=== PATIENT | female | born 1990 | race Caucasian/White ===

== ENCOUNTER 2017-11-14 16:40 | Inpatient (IN) | payer OTHER, SELFPAY ==
[2017-11-14 06:46] VITALS: BMI 29.6
[2017-11-14] MEDS: Lactated Ringers 1,000 ML 50 ML IV ×2 (17:15→20:37)
[2017-11-14 17:56] LABS: Hematocrit 32.6 % (37-47); Hemoglobin 11.2 g/dl (12.0-15.0); Mean Corp Hgb Conc 34.4 g/gl (32-36); Mean Corpuscular Hgb 29.2 pg (27.0-32.0); Mean Corpuscular Volume 84.9 fL (81-99); Mean Platelet Vol. 9.8 fl (6.2-12.0); Platelet Count 120 K/mm3 (150-450); RBC Distribution Width CV 13.7 % (11.6-14.6); RBC Distribution Width SD 41.5 fl (35.1-43.9); Red Blood Count 3.84 M/mm3 (4.2-5.4); White Blood Count 15.9 K/mm3 (4.4-11.0)
[2017-11-14 17:57] LABS: Scan Indicated on CBC? Y/N NO
--- NOTE | 2017-11-14 19:59 | PCM.PN.BLA ---
Progress Note LABOR PROGRESS NOTE Comfortable w/ epidural. AVSS EFM category I tracing UCs q 3-7 mins AROM: light to mod mec CX: 5-6 / 75 / -2 A/P: 39 6/7 wk . Labor. Continue labor. Pitocin prn and order written. Anticipate
[2017-11-14] MEDS: Oxytocin 30 units/NS 500 ml 30 UNITS/500 ML IV.SOLN IV (20:40)
[2017-11-14] MEDS: fentaNYL-bupivacaine (epidural) 100 ML BAG EPIDURAL ×2 (21:47→22:57)
--- NOTE | 2017-11-14 22:46 | PCM.PN.BLA ---
Progress Note LABOR PROGRESS NOTE Comfortable w/ epidural Sitting up semi ponce's position in bed AVSS Pitocin augmentation EFM 130-140s avg variability accels. Category I tracing UCs q 3 mins CX: anterior lip -1 to 0 station A/P: 39 6/7 wk EGA Labor AROM and pitocin augmentation. Anticipate Begin pushing soon.
[2017-11-14] MEDS: Mag Hydrox/Al Hydrox/Simeth 30 ML UDC PO (23:49)
[2017-11-15] MEDS: Lactated Ringers 1,000 ML 50 ML IV (01:49)
[2017-11-15] MEDS: Oxytocin 30 units/NS 500 ml 30 UNITS/500 ML IV.SOLN 334 UNITS IV (03:07)
--- NOTE | 2017-11-15 03:21 | PCM.OB.VAG ---
Vaginal Delivery Maternal Presentation: Active Labor 39 6/7 wk EGA . Labor Amniotic Membrane Rupture Type: Artificial Amniotic Fluid Description: Lightly stained meconium, Moderate meconium Final MANJIT: 11/15/17 Final MANJIT Source: US <20 weeks Gestational age: 40 wks doctor who attended delivery (if requested by OB): Compa Partida - meconium stained fluid Date of Procedure: 11/15/17 Pre-Operative Diagnosis: 40 wk EGA Post-Operative Diagnosis: same Surgery/ Procedure Performed: Spontaneous Vaginal Delivery Anesthesiologist: Zhanna Bedolla Type of Anesthesia: Epidural Description of Procedure: of a ortiz viable female over intact perineum to lacerations. Head delivered LUISA. No nuchal cord. Shoulders delivered easily. Initial respiratory effort noted. OP and nares bulb suctioned on perineum. to maternal abdomen and cord clamped x two and cut. Dr. Partida in room. Baby to Dr. Partida and RT due to grunting. Additional O2 and bag mask given, mec suctioned. (See resuscitation record) Apgars pending, TBD Routine cord gases collected. PP exam; 2nd degree vaginal laceration at posterior introitus, repaired under epidural to hemostatic and intact with 3-0 vicryl Small first deg laceration at L vaginal side wall. Hemostatic and no repair required. No other lacerations. EBL 300 cc Placenta , mec stained, delivered by spont expulsion, expression. 3v cord, normal appearing and intact with trailing membranes Ray Martell counts correct Presentation: Vertex, LUISA Placental Delivery Description: Spontaneous, Expressed Placenta Disposition: Sent to Pathology - tachycardia, low gr maternal temp just prior to delivery. Meconium stained fluid and end stage meconium Cord Vessel Description: 3 Vessels Cord Gases drawn per routine: ABG, VBG Cord Entanglement: None Drain: Richard to straight drain Estimated Blood Loss: 300 Infant A gender: Female Episiotomy Description: None Laceration: Midline, 2nd degree - first degree vaginal laceration also noted , L vaginal side wall at introitus (hemostatic) Medications given after delivery: IV Pitocin Complications: None - Baby required bag mask, pulse ox on and O2. meconium suctioning performed by Dr. Partida
--- NOTE | 2017-11-15 03:30 | PCM.DCVAG ---
Discharge Diet: No Restrictions Discharge Activity: May Shower, May Take a Tub Bath May resume sexual activity in: 4-6 weeks Additional Activity Instructions:: Nothing in the vagina for 4-6 weeks. You may return to work/school in 6 weeks. Additional Instructions: If you experience any of the following, contact your healthcare provider. Bleeding that soaks a pad every hour for 2 hours Fever 100.4 or higher Unrelieved abdominal pain Problems urinating (including inability to urinate or burning while urinating). Visual changes Severe headache Flu-like symptoms Pain or redness in one of both of your breasts Pain, warmth, tenderness or swelling in your legs, especially the calf area Frequent nausea and vomiting Symptoms of depression or anxiety If you experience any of the following, call 911 or go to the nearest Emergency Room. Chest pain Problems breathing Seizure activity Partial or complete paralysis of a body part, slurred speech, weakness or drooping of the face, or a sudden inability to walk or hold your balance Allergies/Adverse Reactions: Allergies No Known Allergies Allergy (Verified 11/14/17 17:33) Medications to take at Discharge Vitamins 1 tab PO DAILY 11/14/17 Orders to be completed after discharge: Electric breast pump Location: None Selected Please Follow Up With: Darien Peterson MD - [phone] When: Call to make an appointment with your doctor in 6 weeks. Primary Care Physician: Shayna Rob MD [Primary Care Provider] - Proposed Discharge Date: 11/17/17
--- NOTE | 2017-11-15 03:31 | DCINST_ITS ---
Discharge Diet: No Restrictions Discharge Activity: May Shower, May Take a Tub Bath May resume sexual activity in: 4-6 weeks Additional Activity Instructions:: Nothing in the vagina for 4-6 weeks. You may return to work/school in 6 weeks. Additional Instructions: If you experience any of the following, contact your healthcare provider. * Bleeding that soaks a pad every hour for 2 hours * Fever 100.4 or higher * Unrelieved abdominal pain * Problems urinating (including inability to urinate or burning while urinating) . * Visual changes * Severe headache * Flu-like symptoms * Pain or redness in one of both of your breasts * Pain, warmth, tenderness or swelling in your legs, especially the calf area * Frequent nausea and vomiting * Symptoms of depression or anxiety If you experience any of the following, call 911 or go to the nearest Emergency Room. * Chest pain * Problems breathing * Seizure activity * Partial or complete paralysis of a body part, slurred speech, weakness or drooping of the face, or a sudden inability to walk or hold your balance Allergies/Adverse Reactions: Allergies No Known Allergies Allergy (Verified 11/14/17 17:33) Medications to take at Discharge Vitamins 1 tab PO DAILY 11/14/17 Orders to be completed after discharge: Electric breast pump Location: None Selected Please Follow Up With: Darien Peterson MD - [phone] When: Call to make an appointment with your doctor in 6 weeks. Primary Care Physician: Shayna Rob MD [Primary Care Provider] - Proposed Discharge Date: 11/17/17
--- NOTE | 2017-11-15 03:32 | PLAC_PTH ---
PATIENT: CHET VELASCO LOC: [facility] U#:[id number] AGE/SX: 27/F ROOM: WP019 RE11/14/[address]: Dr. Padmini Guthrie MD : 1990 BED: 1 DIS: 11/17/2017 SPEC #: [id number] RECD: 11/15/17 06:44 STATUS: LORNA GOLDSMITH #: [id number] PA: 11/15/17 03:[address]: Padmini Guthrie DEPT: SURGICAL PATHOLOGY RECD BY: Yamilka Dickerson ENTERED: 11/15/17 09:26 SP TYPE: PLACENTA OTHR DR: Dr. Shayna Rob MD Tissues: Placenta, NOS Procedures: Surgery Specimen Level V HEADER OPERATION: Vaginal delivery PRE-OP DIAGNOSIS: Meconium, tachycardia and maternal temp right TISSUE SUBMITTED: Placenta MICROSCOPIC DIAGNOSIS Restrepo placenta (483 gm): Umbilical cord ? trivascular with no inflammation. Placental membranes ? mild acute deciduitis. Pigmented macrophages consistent with meconium staining. Placental disc ? Ellen-Rakesh change and mild chronic deciduitis. AM:shelly 11/17/17 MICROSCOPIC DESCRIPTION Slides are reviewed. GROSS DESCRIPTION SPECIMEN: PLACENTA / CLINICAL INFORMATION: A. Weight: 3.126 kg B. Gestational Age: 39 weeks C. Sex: Female PLACENTAL WEIGHT (POST FIXATION): 483 gm PLACENTAL DIMENSIONS: 17 x 18 x 3 cm PLACENTAL SHAPE: Usual ovoid PLACENTAL WEIGHT FOR GESTATIONAL AGE: Within 10-99th percentile MEMBRANES - Present A. Insertion: Marginal B. Site of rupture from edge: 4 cm from edge of placental disc C. Color of membrane: Hernández-greenish and mucoidy consistent with meconium staining. D. Abnormalities: None A round piece of placenta is noted in the membranes measuring 2 x 2 x 0.5 cm. Sections of this placental piece reveal unremarkable cut surfaces. A small succenturiate lobe is noted in the membranes. UMBILICAL CORD - Present A. Color: Hernández-doran B. Insertion: Central C. Length: 30 cm D. Diameter: 1.1 cm E. Number of vessels: Three F. Abnormalities: None PLACENTAL DISC - Present A. Color of surface: Hernández-doran B. surface abnormalities: None C. Maternal cotyledons: Intact with minimal tears D. Attached retro placental clot: No clot E. Cut surface: Dark red and spongy F. Lesions: None G. Separate clot: Absent SECTIONS SUBMITTED: 1. Membrane roll 2. Cord, maternal end 3. Cord, end 4. Placental disc, and maternal surfaces 5. Placental disc, and maternal surfaces 6. Placental disc, and maternal surfaces MARCELO:shelly 11/16/17 TC:2 CPT: 96822
[2017-11-15] MEDS: Oxytocin 30 units/NS 500 ml 30 UNITS/500 ML IV.SOLN 167 UNITS IV (03:37)
[2017-11-15] MEDS: Acetaminophen 325 MG Tablet PO (04:03)
[2017-11-15 06:52] LABS: Pathology Specimen OB SEE PATHOLOGY REPORT
[2017-11-15 07:14] VITALS: BP 101/58; PULSE 100; RESP 18; TEMP 36.1; O2SAT 96
[2017-11-15 13:15] VITALS: BP 116/63; PULSE 102; RESP 18; TEMP 36.2; O2SAT 95
[2017-11-15] MEDS: Prenatal Vits Tablet 1 TABLET PO (13:38)
[2017-11-15 16:07] VITALS: BP 110/70; PULSE 100; RESP 18; TEMP 36.5; O2SAT 98
[2017-11-15] MEDS: Ibuprofen 600 MG Tablet PO (19:32)
[2017-11-15 20:00] VITALS: BP 102/56; PULSE 103; RESP 17; TEMP 36.8
[2017-11-16] VITALS: BP 91/52; PULSE 80; RESP 16
[2017-11-16] MEDS: Ibuprofen 600 MG Tablet PO ×3 (01:02→18:40)
--- NOTE | 2017-11-16 07:57 | PCM.PN.OB ---
Subjective: PPD#1 Doing well. Pain control adequate. No concerns. Baby being watched for bilirubin levels, and Leslee is fine with staying until tomorrow. Nursing . - Physical Exam General: Alert, Oriented x3, Cooperative, No apparent distress HEENT: Atraumatic, EOMI Neck: Supple Abdomen: Soft - Fundus firm NT at approx 2 cm inferior to umbilicus Neurological: Cranial nerves II-XII grossly intact Psych/Mental Status: Normal Affect Vital Signs Temp Pulse Resp BP Pulse Ox 98.2 F 80 16 91/52 L 98 11/15/17 20:00 11/16/17 00:00 11/16/17 00:00 11/16/17 00:00 11/15/17 16:07 Oxygen Delivery Method Room Air Weight: 80.739 kg Body Mass Index (BMI) 29.6 Intake and Output for Last 24 Hours 11/14/17 11/15/17 11/16/17 23:59 23:59 23:59 Output Total 400 / 400 Balance -400 / -400 Medical Necessity - Tobacco Use Smoking Status: Never smoker Assessment/Plan PPD#1 Stable pp. Continue care.
[2017-11-16 08:00] VITALS: BP 99/52; PULSE 95; RESP 16; TEMP 36.2; O2SAT 97
[2017-11-16] MEDS: Prenatal Vits Tablet 1 TABLET PO (12:22)
[2017-11-16 14:00] VITALS: BP 99/56; PULSE 89; RESP 16; TEMP 36; O2SAT 97
[2017-11-16 19:32] VITALS: BP 102/64; PULSE 81; RESP 16; TEMP 36.4; O2SAT 98
[2017-11-17 01:45] VITALS: BP 89/50; PULSE 88; RESP 17; TEMP 36.2; O2SAT 99
[2017-11-17] MEDS: Ibuprofen 600 MG Tablet PO (01:47)
--- NOTE | 2017-11-17 07:42 | PN.OBGYN_ITS ---
Subjective: PPD#2 Doing well. Nursing. Baby is under bili lights. No concerns voiced otherwise. - Physical Exam General: Alert, Oriented x3, Cooperative, No apparent distress HEENT: Atraumatic Neck: Supple Abdomen: Soft - Fundus firm NT approx at umbilicus Neurological: Cranial nerves II-XII grossly intact Psych/Mental Status: Normal Affect Vital Signs Temp Pulse Resp BP Pulse Ox 97.2 F L 88 17 89/50 L 99 11/17/17 01:45 11/17/17 01:45 11/17/17 01:45 11/17/17 01:45 11/17/17 01:45 Oxygen Delivery Method Room Air Weight: 80.739 kg Body Mass Index (BMI) 29.6 Intake and Output for Last 24 Hours 11/15/17 11/16/17 11/17/17 23:59 23:59 23:59 Output Total 400 / 400 Balance -400 / -400 Medical Necessity - Tobacco Use Smoking Status: Never smoker Assessment/Plan PPD#2 Stable pp. Dischg home. Eligible for hotel status if baby is not released ( under bili lights now) Continue care until dischg.
--- NOTE | 2017-11-17 07:42 | PCM.DC.SUM ---
Discharge Date and Diagnosis Date of Admission: 11/14/17 - 39 6/7 wk labor Date of Discharge: 11/17/17 - Hospital Course and Treatment Summary of Care Provided: The patient is a 27 year old female presented at 39 6/7 wk in labor. Went on to deliver . course uneventful. Dischg home PPD#2 Baby under bili lights. eligible for hotel if baby is not released. RTO in 6 wk for pp check. Discharge Diet: No Restrictions Discharge Activity: May Shower, May Take a Tub Bath May resume sexual activity in: 4-6 weeks Additional Activity Instructions:: Nothing in the vagina for 4-6 weeks. You may return to work/school in 6 weeks. Home Medications: Medications to take at Discharge Vitamins 1 tab PO DAILY 11/14/17 Other Amb Orders: Electric breast pump Location: None Selected Primary Care Physician: Shayna Rob MD [Primary Care Provider] - Please Follow Up With: Darien Peterson MD - [phone] Medical Necessity - Tobacco Use Smoking Status: Never smoker Meaningful Use Info Meaningful Use Diagnoses (Choose all that apply): None applicable
[2017-11-17 07:45] VITALS: BP 109/70; PULSE 94; RESP 14; TEMP 36.8; O2SAT 98
[2017-11-17 12:45] VITALS: BP 94/61; PULSE 77; RESP 14; TEMP 36.4; O2SAT 100
[2017-11-17] MEDS: Prenatal Vits Tablet 1 TABLET PO (12:53)
== END 2017-11-17 15:00 | disposition home or self-care (01) | DRG 775 ==
LOC: WP 11-15 03:07
PROVIDERS: Admitting Provider Obstetrics & Gynecology; Family Provider Family Medicine; PCP Family Medicine; Visit Provider Obstetrics & Gynecology
DX: O77.0 Labor and delivery complicated by meconium in amniotic fluid (principal); Z37.0 Single live birth; Z3A.40 40 weeks gestation of pregnancy; O70.1 Second degree perineal laceration during delivery; O70.0 First degree perineal laceration during delivery
CPT/HCPCS: 59025; 59050; 85027; 86850; 86900; 88307; 99218; J7120; G0378

== ENCOUNTER → 2018-05-03 17:04 | Outpatient (CLI) | payer OTHER, SELFPAY ==
[2018-05-08 10:28] LABS: HPV Reflexed? NOT INDICATED
== END ==
PROVIDERS: Family Provider Family Medicine; PCP Family Medicine; Referring Provider Obstetrics & Gynecology; Visit Provider Obstetrics & Gynecology
DX: Z12.4 Encounter for screening for malignant neoplasm of cervix (principal)
CPT/HCPCS: 88175; G0145

== ENCOUNTER → 2019-10-02 | Outpatient (CLI) | payer OTHER, SELFPAY ==
[2019-10-02 18:21] LABS: Chlamydia Trachomatis by PCR Negative (Negative); Neisserai gonorrhoeae by PCR Negative (Negative); Probe Check PASS; Sample Adequacy Control PASS; Specimen Processing Control PASS
== END | disposition home or self-care (01) ==
LOC: LABSPEC 14:28
PROVIDERS: PCP Family Medicine; Visit Provider Obstetrics & Gynecology
DX: Z11.3 Encounter for screening for infections with a predominantly sexual mode of transmission (principal)
CPT/HCPCS: 87491; 87591

== ENCOUNTER → 2020-03-13 06:59 | Outpatient (CLI) | payer OTHER, SELFPAY ==
[2020-03-13 08:06] LABS: Glucose GTT-Gestation. Fasting 70 mg/dL (<105)
[2020-03-13 09:07] LABS: Glucose GTT-Gestational 1 Hr 145 mg/dL (<190)
[2020-03-13 10:21] LABS: Glucose GTT-Gestational 2 Hr 138 mg/dL (<165)
[2020-03-13 11:55] LABS: Glucose GTT-Gestational 3 Hr 127 L (<145)
== END ==
PROVIDERS: PCP Family Medicine; Referring Provider Obstetrics & Gynecology; Visit Provider Obstetrics & Gynecology
DX: O24.912 Unspecified diabetes mellitus in pregnancy, second trimester (principal); Z3A.00 Weeks of gestation of pregnancy not specified
CPT/HCPCS: 36415; 82951; 82952

== ENCOUNTER → 2020-05-25 17:55 | Outpatient (CLI) | payer OTHER, SELFPAY | PROVIDERS: PCP Family Medicine; Referring Provider Student in an Organized Health Care Education/Training Program; Visit Provider Student in an Organized Health Care Education/Training Program | DX: Z11.59 Encounter for screening for other viral diseases (principal) | CPT/HCPCS: 87635; C9803; U0003 ==

== ENCOUNTER 2020-06-02 20:15 | Inpatient (IN) | payer OTHER, SELFPAY ==
[2020-06-02] VITALS (9 sets, daily range): BP systolic 98–119; BP diastolic 52–73; PULSE 72–96; BMI 29.6
[2020-06-02] MEDS: Lactated Ringers 1,000 ML 50 ML IV (20:30)
[2020-06-02] MEDS: Lactated Ringers 500 ML 999 ML IV (20:31)
[2020-06-02 20:46] LABS: Absolute Lymphocyte Count 1.81 X10^3/uL (0.83-4.51); Absolute Neutrophil Count 14.1 X10^3/uL (2.0-7.7); Basophil# 0.08 X10^3/uL; Basophil% 0.5 % (0-1); Eosinophil# 0.04 X10^3/uL; Eosinophils% 0.2 % (0-5); Hematocrit 33.1 % (37-47); Hemoglobin 11.1 g/dL (12.0-15.0); Lymphocyte # 1.81 X10^3/ul (4.0); Lymphocyte % 10.3 % (19-41); Mean Corp Hgb Conc 33.5 g/dL (32-36); Mean Corpuscular Hgb 28.6 pg (27.0-32.0); Mean Corpuscular Volume 85.3 fL (81-99); Mean Platelet Vol. 9.8 fl (6.2-12.0); Monocyte% 5.7 % (0-10); NRBC Flagged by Analyzer 0 % (0-5); Neutrophil # 14.14 X10^3/uL (2.7-7.7); Neutrophil % 80.7 % (47-70); Platelet Count 135 K/mm3 (150-450); RBC Distribution Width CV 13.5 % (11.6-14.6); RBC Distribution Width SD 41.5 fl (35.1-43.9); Red Blood Count 3.88 M/mm3 (4.2-5.4); White Blood Count 17.5 K/mm3 (4.4-11.0)
--- NOTE | 2020-06-02 20:58 | PCM.HP.OB ---
- Problem List (1) 40 weeks gestation of Status: Acute History Date of Admission: 06/02/20 Final MANJIT: 05/30/20 Final MANJIT Source: US <20 weeks Gestational age: 40 Weeks and 3 Days History of this : This is a 29 year-old, G [2], P [1001], at 40 3/7 weeks gestational age presents with contractions q2 minutes. She was previously 3cm in the office last week. Medical History: Medical History (Last Updated 06/02/20 @ 21:[address] Zehra Key MD) Patient denies medical problems Z78.9 Allergies No Known Allergies Allergy (Verified 06/02/20 20:23) Home Medications: Home Medications Vitamins 1 tab PO DAILY 11/14/17 Smoking Status: Never smoker Alcohol: None Number of Fetus(es): 1 NST - FHR Rate Baby A Baseline: 130 Accelerations:: None Decelerations:: None NST Reactive:: Yes FHR Category:: Category I Uterine Activity:: 3-5/10 min History Past Pregnancies: Past Pregnancies Delivery Date Name GA/ Weeks Outcome Route Wt Sex Labor Length Anesthesia Delivery Location Provider FOB 11/13/17 Zena 40w Meconium, 2nd degree perineal lac 7#1 F 24 Epidural [facility] Jerri Pike Labs: Mom's Problem List Problem Status Onset Code 39 weeks gestation of Acute [id number] Mom's Labs & Results 06/02/20 06/02/20 20:30 20:30 WBC 17.5 H RBC 3.88 L Hgb 11.1 L Hct 33.1 L MCV 85.3 MCH 28.6 MCHC 33.5 RDW Std Deviation 41.5 RDW Coeff of Sanjiv 13.5 Plt Count 135 L MPV 9.8 Immature Gran % (Auto) 2.600 H Neut % (Auto) 80.7 H Lymph % (Auto) 10.3 L [place] % (Auto) 5.7 Eos % (Auto) 0.2 Baso % (Auto) 0.5 Absolute Neuts (auto) 14.1 H Absolute Lymphs (auto) 1.81 Nucleated RBC % 0 Blood Type Pending Antibody Screen Pending Course Did the patient receive Yes care? Labs Blood Type: B RH: POSITIVE RPR/VDRL/Syphilis Nonreactive Rubella status Immune HbSAg Negative Date Done: 11/14/19 Chlamydia Negative Gonorrhea Negative HIV/AIDS Non-Reactive Group B Strep: Negative Current Obstetrical History Gestational Diabetes No Incompetent Cervix No Infertility No IUGR No Macrosomia No Hypertension/Pre-eclampsia No Placenta Previa/Abruption No PTL/PROM No Uterine anomaly No Oligohydramnios No Polyhydramnios No Multiple gestation No Past Medical History Asthma No Diabetes No Hypertension No Heart disease No Mitral valve prolapse No Neurologic/Seizure disorder/ No Migraines Kidney disease No Liver disease No Varicosities No Clotting disorders/Hx of DVT No Thyroid Dysfunction No Other medical diseases No Psychiatric disorders No Major trauma No Abnormal PAP smear No Sleep apnea No Mammogram in the last 2 years No Social History Marital Status: Alleged father Shahzad Alva Hx Smoking No Smoking Status Never smoker Expected Infant Delivery Method: Spontaneous Vaginal Number of Visits: 12 Physical Exam Vitals: Vital Signs Pulse BP 72 115/60 06/02/20 20:07 06/02/20 20:07 General: Alert, Oriented x3, Cooperative, No apparent distress HEENT: Atraumatic, Normocephalic Cardiovascular: Regular rate, Regular Rhythm, Normal S1, Normal S2 Lungs: Clear to auscultation, Normal air movement Abdomen: Soft, Non Tender, Non-Distended, Gravid Extremities:: No edema Neurological: Neuro grossly intact Estimated gestational size: Appropriate for gestational size Presentation: Cephalic Cervix Dilation (cm): 5 Station: -1 Effacement (%): 80 Assessment/Plan All Active Problems (Last Updated 06/02/20 @ 21:[address] Zehra Key MD) 40 weeks gestation of (Acute) This is a 29 year-old, G [2], P [1], at 40 3/7 weeks gestational age in active labor, Cat I FHR -Consents reviewed and signed -GBS neg -Epidural per patient request -COVID test neg on 05/25/20
[2020-06-02] MEDS: Oxytocin 30 units/NS 500 ml 30 UNITS/500 ML IV.SOLN 334 UNITS IV (21:34)
--- NOTE | 2020-06-02 21:58 | PCM.OPRPT ---
Problem List (1) 40 weeks gestation of Status: Acute (2) (spontaneous vaginal delivery) Status: Acute Vaginal Delivery Maternal Presentation: Active Labor Amniotic Membrane Rupture Type: Spontaneous Rupture of Membrane time: 06/02/200h Amniotic Fluid Description: Clear Final MANJIT: 05/30/20 Final MANJIT Source: US <20 weeks Gestational age: 40 Weeks and 3 Days [place] doctor who attended delivery (if requested by OB): Teto Mccormack Date of Procedure: 06/02/20 Pre-Operative Diagnosis: 40 3/7wga, labor Post-Operative Diagnosis: 40 3/7wga, labor Surgery/ Procedure Performed: Spontaneous Vaginal Delivery Type of Anesthesia: Local with 1% lidocaine Description of Procedure: Patient was FD/+2 on my arrival and pushed to delivery head with Cat II FHR including prolonged deceleration. Nuchal cord reduced x 1 and infant shoulders and body delivered revealing a male infant. The cord was doubly clamped and cut at approximately 30 second of life and infant was passed to awaiting nursery personnel and Pediatric Hospitalist. Cord gas specimen were obtained. The placenta delivered spontaneously and appeared intact on inspection. A first degree perineal laceration was repaired with 3-0 Vicryl Rapide following local injection of 1% lidocaine. Sponge and needle counts correct x 2. \ Presentation: Vertex Placental Delivery Description: Spontaneous Placenta Disposition: [facility] Cord Vessel Description: 3 Vessels Nuchal Cord Compression: Without compression Cord Gases drawn per routine: ABG, VBG Cord Entanglement: Around neck x 1, loose Estimated Blood Loss: 250 ml Infant A gender: Male (1 minute): 7 (5 minute): 8 Episiotomy Description: None Laceration: Midline, Perineal Extension/lac, 1st degree Medications given after delivery: IV Pitocin Complications: None
[2020-06-02] MEDS: Ibuprofen 600 MG Tablet PO (22:52)
[2020-06-03] VITALS (7 sets, daily range): BP systolic 95–124; BP diastolic 48–68; PULSE 56–81; RESP 16–18; TEMP 36.3–36.9
[2020-06-03] MEDS: 0.9% Saline Lock 10 ML Syringe IV (00:07)
--- NOTE | 2020-06-03 08:15 | PN.OBGYN_ITS ---
Patient Problems: Active and Suspected Problems (Last Updated 06/02/20 @ 21:[address] Zehra Key MD) 40 weeks gestation of (Acute) (spontaneous vaginal delivery) (Acute) Subjective: No complaints. Denies significant pain or heavy lochia. She is out of bed and ambulating, voiding without difficulty. She is . Objective: AVSS - Physical Exam Vitals/I&O's: Vital Signs Temp Pulse Resp BP 98.0 F 56 L 16 102/50 L 06/03/20 07:34 06/03/20 07:34 06/03/20 07:34 06/03/20 07:34 Oxygen Delivery Method Room Air Weight: 80.739 kg Body Mass Index (BMI) 29.6 Intake and Output for Last 24 Hours 06/01/20 06/02/20 06/03/20 23:59 23:59 23:59 Intake Total 774.50 / 774.50 333 / 333 Balance 774.50 / 774.50 333 / 333 General: Alert, Oriented x3, Cooperative, No apparent distress HEENT: Atraumatic, Normocephalic Lungs: Clear to auscultation, Normal air movement Cardiovascular: Regular rate, Regular Rhythm, Normal S1, Normal S2 Abdomen: Soft, Non Tender, Non-Distended Extremities: No edema Neurological: Neuro grossly intact Psych/Mental Status: Normal Affect, Appropriate, Alert and oriented to time, place, person, mood and affect Laboratory Results 06/02/20 20:30: WBC 17.5 H, RBC 3.88 L, Hgb 11.1 L, Hct 33.1 L, MCV 85.3, MCH 28.6, MCHC 33.5, RDW Std Deviation 41.5, RDW Coeff of Sanjiv 13.5, Plt Count 135 L, MPV 9.8, Immature Gran % (Auto) 2.600 H, Neut % (Auto) 80.7 H, Lymph % (Auto) 10.3 L, Sanders % (Auto) 5.7, Eos % (Auto) 0.2, Baso % (Auto) 0.5, Absolute Neuts (auto) 14.1 H, Absolute Lymphs (auto) 1.81, Nucleated RBC % 0 06/02/20 20:30: Blood Type B POSITIVE, Antibody Screen NEGATIVE Current Medications Acetaminophen (Acetaminophen 325 Mg Tablet) 325 - 650 mg PO Q4H PRN PRN PRN Reason: Pain Score 1-3 Bisacodyl (Bisacodyl 10 Mg Suppository) 10 mg RECTAL UD PRN PRN Reason: If no BM Dibucaine (Dibucaine 30 Gm Tube) 1 applic TOPICAL TID PRN PRN; Protocol PRN Reason: Discomfort Hydrocortisone (Hydrocortisone 2.5% Crm) 1 applic TOPICAL TID PRN PRN; Protocol PRN Reason: Discomfort Ibuprofen (Ibuprofen 600 Mg Tablet) 600 mg PO Q6H PRN PRN PRN Reason: Pain Score 1-3 Last Admin: 06/02/20 22:52 Dose: 600 mg Documented by: Methylergonovine Maleate (Methylergonovine 0.2 Mg/Ml Ampul) 0.2 mg IM X1 PRN PRN Reason: Excess bleeding/uterine atony Ondansetron HCl (Ondansetron 4 Mg/2 Ml Vial) 4 mg IV Q4H PRN PRN PRN Reason: Nausea Multivit/Folic Acid/Iron ( Vits Tablet) 1 tablet PO DAILY ASHOK Senna/Docusate Sodium (Senna/Docusate Sodium 1 Tablet) 1 - 2 tablet PO DAILY PRN PRN PRN Reason: Constipation Simethicone (Simethicone 80 Mg Tablet) 80 mg PO PCHS PRN PRN Reason: Indigestion/Stomach pain Sodium Chloride (0.9% Saline Lock 10 Ml Syringe) 5 - 15 ml IV UD PRN PRN Reason: SALINE FLUSH Last Admin: 06/03/20 00:07 Dose: 10 ml Documented by: Medical Necessity - Tobacco Use Smoking Status: Never smoker Assessment/Plan All Active Problems (Last Updated 06/02/20 @ 21:[address] Zehra Key MD) 40 weeks gestation of (Acute) (spontaneous vaginal delivery) (Acute) This is a 29 year-old, G [2], P [2001 PPD#1 s/p -Rh positive - -Routine care -Plan for d/c home tomorrow
[2020-06-03] MEDS: Ibuprofen 600 MG Tablet PO ×2 (08:30→16:38)
[2020-06-03] MEDS: Prenatal Vits Tablet 1 TABLET PO (12:12)
[2020-06-04 02:52] VITALS: BP 97/65; PULSE 68; RESP 18; TEMP 36.2
[2020-06-04] MEDS: Ibuprofen 600 MG Tablet PO (02:53)
[2020-06-04 10:10] VITALS: BP 101/50; PULSE 52; RESP 16; TEMP 37.1
--- NOTE | 2020-06-04 10:50 | PCM.PN.OB ---
Patient Problems: Active and Suspected Problems (Last Updated 06/02/20 @ 21:[address] Zehra Key MD) 40 weeks gestation of (Acute) (spontaneous vaginal delivery) (Acute) Subjective: Patient without complaints. Breast-feeding going well. Minimal vaginal bleeding. Wants to go home today. - Physical Exam Vitals/I&O's: Vital Signs Temp Pulse Resp BP 98.7 F 52 L 16 101/50 L 06/04/20 10:10 06/04/20 10:10 06/04/20 10:10 06/04/20 10:10 Oxygen Delivery Method Room Air Weight: 178 lb Body Mass Index (BMI) 29.6 Intake and Output for Last 24 Hours 06/02/20 06/03/20 06/04/20 23:59 23:59 23:59 Intake Total 774.50 / 774.50 333 / 333 Balance 774.50 / 774.50 333 / 333 Current Medications Acetaminophen (Acetaminophen 325 Mg Tablet) 325 - 650 mg PO Q4H PRN PRN PRN Reason: Pain Score 1-3 Bisacodyl (Bisacodyl 10 Mg Suppository) 10 mg RECTAL UD PRN PRN Reason: If no BM Dibucaine (Dibucaine 30 Gm Tube) 1 applic TOPICAL TID PRN PRN; Protocol PRN Reason: Discomfort Hydrocortisone (Hydrocortisone 2.5% Crm) 1 applic TOPICAL TID PRN PRN; Protocol PRN Reason: Discomfort Ibuprofen (Ibuprofen 600 Mg Tablet) 600 mg PO Q6H PRN PRN PRN Reason: Pain Score 1-3 Last Admin: 06/04/20 02:53 Dose: 600 mg Documented by: Methylergonovine Maleate (Methylergonovine 0.2 Mg/Ml Ampul) 0.2 mg IM X1 PRN PRN Reason: Excess bleeding/uterine atony Ondansetron HCl (Ondansetron 4 Mg/2 Ml Vial) 4 mg IV Q4H PRN PRN PRN Reason: Nausea Multivit/Folic Acid/Iron ( Vits Tablet) 1 tablet PO DAILY ASHOK Last Admin: 06/03/20 12:12 Dose: 1 tablet Documented by: Senna/Docusate Sodium (Senna/Docusate Sodium 1 Tablet) 1 - 2 tablet PO DAILY PRN PRN PRN Reason: Constipation Simethicone (Simethicone 80 Mg Tablet) 80 mg PO PCHS PRN PRN Reason: Indigestion/Stomach pain Sodium Chloride (0.9% Saline Lock 10 Ml Syringe) 5 - 15 ml IV UD PRN PRN Reason: SALINE FLUSH Last Admin: 06/03/20 00:07 Dose: 10 ml Documented by: Medical Necessity - Tobacco Use Smoking Status: Never smoker Assessment/Plan All Active Problems (Last Updated 06/02/20 @ 21:[address] Zehra Key MD) 40 weeks gestation of (Acute) (spontaneous vaginal delivery) (Acute) Doing well day #2 status post spontaneous vaginal delivery. Will discharge to home with routine instructions.
--- NOTE | 2020-06-04 10:51 | DCINST_ITS ---
Discharge Diet: No Restrictions Discharge Activity: May Shower, May Take a Tub Bath May resume sexual activity in: 4-6 weeks Additional Activity Instructions:: Nothing in the vagina for 4-6 weeks. You may return to work/school in 6 weeks. Call your doctor if you observe: Inability to urinate, Inability to have a bowel movement, Using more than one pad per hour Additional Instructions: If you experience any of the following, contact your healthcare provider. * Bleeding that soaks a pad every hour for 2 hours * Fever 100.4 or higher * Unrelieved incision or abdominal pain * Swelling, redness, discharge or bleeding from your incision or episiotomy site * Your incision begins to separate * Problems urinating (including inability to urinate or burning while urinating). * Visual changes * Severe headache * Flu-like symptoms * Pain or redness in one of both of your breasts * Pain, warmth, tenderness or swelling in your legs, especially the calf area * Frequent nausea and vomiting * Symptoms of depression or anxiety If you experience any of the following, call 911 or go to the nearest Emergency Room. * Chest pain * Problems breathing * Seizure activity * Partial or complete paralysis of a body part, slurred speech, weakness or drooping of the face, or a sudden inability to walk or hold your balance Allergies/Adverse Reactions: Allergies No Known Allergies Allergy (Verified 06/02/20 20:23) Medications to take at Discharge Vitamins 1 tab PO DAILY 11/14/17 Please Follow Up With: Emerson Gonzalez MD - [phone] When: Call to make an appointment with your doctor in 6 weeks. Primary Care Physician: Shayna Rob MD [Primary Care Provider] - Test Results: Test results from this visit will be discussed in further detail at your follow- up appointment, if applicable.
--- NOTE | 2020-06-04 10:51 | PCM.DCVAG ---
Discharge Diet: No Restrictions Discharge Activity: May Shower, May Take a Tub Bath May resume sexual activity in: 4-6 weeks Additional Activity Instructions:: Nothing in the vagina for 4-6 weeks. You may return to work/school in 6 weeks. Call your doctor if you observe: Inability to urinate, Inability to have a bowel movement, Using more than one pad per hour Additional Instructions: If you experience any of the following, contact your healthcare provider. Bleeding that soaks a pad every hour for 2 hours Fever 100.4 or higher Unrelieved incision or abdominal pain Swelling, redness, discharge or bleeding from your incision or episiotomy site Your incision begins to separate Problems urinating (including inability to urinate or burning while urinating). Visual changes Severe headache Flu-like symptoms Pain or redness in one of both of your breasts Pain, warmth, tenderness or swelling in your legs, especially the calf area Frequent nausea and vomiting Symptoms of depression or anxiety If you experience any of the following, call 911 or go to the nearest Emergency Room. Chest pain Problems breathing Seizure activity Partial or complete paralysis of a body part, slurred speech, weakness or drooping of the face, or a sudden inability to walk or hold your balance Allergies/Adverse Reactions: Allergies No Known Allergies Allergy (Verified 06/02/20 20:23) Medications to take at Discharge Vitamins 1 tab PO DAILY 11/14/17 Please Follow Up With: Emerson Gonzalez MD - [phone] When: Call to make an appointment with your doctor in 6 weeks. Primary Care Physician: Shayna Rob MD [Primary Care Provider] - Test Results: Test results from this visit will be discussed in further detail at your follow-up appointment, if applicable.
== END 2020-06-04 12:05 | disposition home or self-care (01) | DRG 807 ==
LOC: WPOUT 20:16 → WP 20:17
PROVIDERS: Admitting Provider Obstetrics & Gynecology; PCP Family Medicine; Visit Provider Obstetrics & Gynecology
DX: O69.81X0 Labor and delivery complicated by cord around neck, without compression, not applicable or unspecified (principal); Z37.0 Single live birth; Z3A.40 40 weeks gestation of pregnancy; O70.0 First degree perineal laceration during delivery; O76 Abnormality in fetal heart rate and rhythm complicating labor and delivery
CPT/HCPCS: 59025; 59050; 85025; 86850; 86900; 86901; 99218; J7120; A4216; G0378

== ENCOUNTER → 2021-04-06 | Outpatient (CLI) | payer OTHER, SELFPAY | END | disposition home or self-care (01) | PROVIDERS: PCP Family Medicine; Referring Provider Physician Assistant Surgical; Visit Provider Physician Assistant Surgical | DX: R05 Cough (principal) | CPT/HCPCS: 87635; U0005; U0003 ==